=== PATIENT | female | born 1955 | race Caucasian/White ===

== ENCOUNTER → 2017-08-15 | Outpatient (CLI) | payer MEDICARE | LOC: LAB.R 15:00 | PROVIDERS: ATTEND Surgery | DX: Z01.812 Encounter for preprocedural laboratory examination (principal); R10.13 Epigastric pain | CPT/HCPCS: 87640 ==

== ENCOUNTER 2017-08-25 05:59 | Day surgery (SDC) | payer MEDICARE, OTHER ==
[2017-08-25] MEDS ORDERED: LACTATED RINGERS 1,000 ML IV ONE (06:33)
[2017-08-25] MEDS ORDERED: BENZOCAINE/TETRACAINE/BUTAMBEN SPRAY 56 GM TOP ONE ×2 (07:18→07:30)
[2017-08-25] MEDS ORDERED: ETOMIDATE 40 MG/20 ML VIAL IVP ONE (07:30)
[2017-08-25] MEDS ORDERED: LIDOCAINE-MPF 2% 5 ML VIAL IM ONE (07:30)
[2017-08-25] MEDS ORDERED: ONDANSETRON 4 MG/2 ML VIAL IVP ONE (07:30)
[2017-08-25 08:04] VITALS: BP 93/54
== END 2017-08-25 06:00 | disposition home or self-care (01) ==
LOC: SDS 05:59
PROVIDERS: ATTEND Surgery
PROC: 0DB78ZX Excision of Stomach, Pylorus, Via Natural or Artificial Opening Endoscopic, Diagnostic (ICD-10-PCS; principal; 2017-08-25 07:30)
DX: R10.13 Epigastric pain (principal); K44.9 Diaphragmatic hernia without obstruction or gangrene; K21.9 Gastro-esophageal reflux disease without esophagitis; G47.33 Obstructive sleep apnea (adult) (pediatric); Z79.82 Long term (current) use of aspirin; Z87.891 Personal history of nicotine dependence
CPT/HCPCS: 43239; A9270; J7120

== ENCOUNTER 2017-10-25 13:22 | Outpatient (CLI) | payer MEDICARE, OTHER | END 2017-10-25 13:23 | disposition home or self-care (01) | LOC: SC 13:22 | PROVIDERS: ATTEND Internal Medicine Pulmonary Disease | DX: G47.33 Obstructive sleep apnea (adult) (pediatric) (principal) | CPT/HCPCS: 99203; G0463; 99212 ==

== ENCOUNTER 2018-01-13 10:28 | Outpatient (CLI) | payer MEDICARE, OTHER ==
--- NOTE | 2018-01-20 14:23 | Mammography Report ---
Procedure Date: 01/13/2018 Accession Number: [id number] / [id number] Procedure: HONG - Screening Mammo Dig Bilat CPT Code: FULL RESULT: EXAM: Screening Mammo Dig Bilat DATE: 01/13/2018 10:45 AM CLINICAL HISTORY: 62-year-old with family history of breast cancer for screening TECHNIQUE: Bilateral CC and MLO views were obtained. COMPARISON: Films from [facility] dated 04/08/2014, 02/07/2013, 01/06/2012, 12/24/2010, 12/23/2009. Reports are available for subsequent mammograms from 2014, 2015, and 2016, but images were not provided. FINDINGS: The breasts demonstrate diffuse fatty replacement bilaterally. No suspicious masses, clustered microcalcifications, or regions of architectural distortion are identified. IMPRESSION: Negative examination RECOMMENDATION: Routine annual screening unless otherwise clinically indicated. BIRADS CATEGORY 1: Negative STANDARD QUALIFYING STATEMENTS: 1. This examination was reviewed with the aid of Computer-Aided Detection (CAD). 2. A negative or benign imaging report should not delay biopsy if clinically suspicious findings are present. Consider surgical consultation if warrented. More than 5% of cancers are not identified by imaging. 3. Dense breasts may obscure an underlying neoplasm.
== END 2018-01-13 10:29 | disposition home or self-care (01) ==
LOC: DI 10:28
PROVIDERS: ATTEND Internal Medicine
DX: Z12.31 Encounter for screening mammogram for malignant neoplasm of breast (principal); Z80.3 Family history of malignant neoplasm of breast
CPT/HCPCS: 77067

== ENCOUNTER 2018-02-01 11:08 | Outpatient (CLI) | payer SELFPAY | END 2018-02-01 11:09 | disposition home or self-care (01) | LOC: LAB 11:08 | DX: Z01.89 Encounter for other specified special examinations (principal) | CPT/HCPCS: 36415 ==

== ENCOUNTER 2018-04-25 12:42 | Emergency (ER) | payer MEDICARE, OTHER ==
[2018-04-25 13:12] LABS: BASOPHILS # (AUTO) 0.1 10^3/uL (0.0-0.1); BASOPHILS % (AUTO) 1.1 %; EOSINOPHILS # (AUTO) 0.1 10^3/uL (0.0-0.7); EOSINOPHILS % (AUTO) 1.2 %; HGB - HEMOGLOBIN 12.9 g/dL (12.0-16.0); LYMPHOCYTES # (AUTO) 3.1 10^3/uL (1.5-3.5); MEAN CORPUSCULAR HEMOGLOBIN 26.8 pg (27.0-31.0); MEAN CORPUSCULAR HGB CONC 32.7 g/dL (32.0-36.0); MEAN PLATELET VOLUME 7.8 fL (7.9-10.8); MONOCYTES # (AUTO) 0.7 10^3/uL (0.0-1.0); MONOCYTES % (AUTO) 5.9 %; NEUTROPHILS # (AUTO) 7.8 10^3/uL (1.5-6.6); NEUTROPHILS % (AUTO) 65.8 %; PLT - PLATELET COUNT 324 10^3/uL (130-450); RED CELL DISTRIBUTION WIDTH 15.3 % (12.0-15.0); WHITE BLOOD COUNT 11.8 x10^3/uL (4.8-10.8)
[2018-04-25 13:28] LABS: ALBUMIN/GLOBULIN RATIO 1.2 (1.0-2.2); BILIRUBIN,TOTAL 0.6 mg/dL (0.2-1.0); CALCIUM 8.9 mg/dL (8.5-10.3); CREATININE 0.8 mg/dL (0.4-1.0); TOTAL PROTEIN 7.4 g/dL (6.7-8.2)
[2018-04-25 13:35] LABS: BILIRUBIN,URINE NEGATIVE (NEGATIVE); GLUCOSE, URINE (UA) NEGATIVE (NEGATIVE); KETONES,URINE (UA) NEGATIVE (NEGATIVE); LEUKOCYTE ESTERASE, URINE NEGATIVE (NEGATIVE); NITRITE,URINE NEGATIVE (NEGATIVE); OCCULT BLOOD,URINE NEGATIVE (NEGATIVE); PROTEIN,URINE NEGATIVE (NEGATIVE); UROBILINOGEN,URINE 0.2 (NORMAL) E.U./dL (NORMAL)
[2018-04-25 13:42] LABS: CLARITY,URINE CLEAR (CLEAR); HCG UR QUAL NEGATIVE
--- NOTE | 2018-04-25 16:03 | ED Physician Documentation ---
PD HPI ABD PAIN - Stated complaint Stated Complaint: SIDE PX - Chief complaint Chief Complaint: Abd Pain - History obtained from History obtained from: Patient - History of Present Illness Timing - onset: How many days ago (10) Timing - duration: Days (noted to have RLQ tenderness on plapation 10 days ago. Has had some pain intermittently with movement. No change in it with eating. Some soft stools the past week. No blood in stool. No dysuria. Saw PCP today and grout machine tender to palpation RLQ so referred to ER.) Timing - details: Gradual onset, Still present, Intermittant Quality: Cramping, Aching, Pain Location: RLQ Radiation: No: Right flank Improved by: Laying still. No: Eating Worsened by: Moving, Palpation. No: Eating, Breathing Associated symptoms: No: Fever, Nausea, Vomiting, Diarrhea (but softer stools this week), Constipation, Dysuria, Weight loss Similar symptoms before: Has not had sx before Recently seen: Clinic Review of Systems Constitutional: denies: Fever, Chills, Myalgias Nose: denies: Rhinorrhea / runny nose, Congestion Throat: denies: Sore throat Cardiac: denies: Chest pain / pressure Respiratory: denies: Cough GI: reports: Abdominal Pain, Nausea. 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, Endometrial ablation, Dilation and currettage - Present Medications Home Medications: Ambulatory Orders Medication Instructions Recorded Confirmed Calcium Carbonate [Calcium] 600 mg PO DAILY 08/15/17 08/15/17 Escitalopram Oxalate [Lexapro] 20 mg PO DAILY 08/15/17 08/15/17 Levothyroxine Sodium [Synthroid] 175 mcg PO DAILY 08/15/17 08/15/17 Levothyroxine Sodium [Synthroid] 200 mcg PO DAILY 08/15/17 08/15/17 Loratadine [Allergy Relief] 10 mg PO DAILY 08/15/17 08/15/17 Omeprazole [PriLOSEC] 20 mg PO DAILY 08/15/17 08/15/17 Parathyroid Hormone [Natpara] 75 mcg SQ DAILY 08/15/17 08/15/17 Zolpidem Tartrate [Ambien] 10 mg PO QPM 08/15/17 08/15/17 Cholecalciferol (Vitamin D3) 04/25/18 [Vitamin D3] - Allergies Allergies/Adverse Reactions: Allergies Allergy/AdvReac Type Severity Reaction Status Date / Time gluten Allergy Cramps Verified 08/15/17 14:19 latex Allergy Itching Verified 08/15/17 14:19 - Social History Does the pt smoke?: No Smoking Status: Never smoker Does the pt drink ETOH?: Yes Does the pt have substance abuse?: No - Immunizations Immunizations are current?: Yes PD ED PE NORMAL - Vitals Vital signs reviewed: Yes - General General: Alert and oriented X 3, No acute distress, Well developed/nourished - HEENT HEENT: Pharynx benign - Neck Neck: Supple, no meningeal sign, No adenopathy - Cardiac Cardiac: RRR, No murmur - Respiratory Respiratory: Clear bilaterally - Abdomen Abdomen: Normal bowel sounds, Soft, Non distended, No organomegaly, Other (very obese. No obvious redness nor soft tissue mass in pannus. Tender RLQ without guarding nor percussion tenderness. ) - Female Female : Deferred - Rectal Rectal: Deferred - Back Back: No CVA TTP - Derm Derm: Normal color, Warm and dry, No rash - Extremities Extremities: No deformity, No tenderness to palpate Results - Vitals Vitals: Vital Signs - 24 hr 04/25/18 12:45 Temperature 36.9 C Heart Rate 82 Respiratory 16 Rate Blood Pressure 130/86 H O2 Saturation 95 Oxygen O2 Source Room air - Labs Labs: Laboratory Tests 04/25/18 04/25/18 04/25/18 13:08 13:08 13:30 WBC 11.8 H RBC 4.80 Hgb 12.9 Hct 39.3 MCV 82.0 MCH 26.8 L MCHC 32.7 RDW 15.3 H Plt Count 324 MPV 7.8 L Neut # (Auto) 7.8 H Lymph # (Auto) 3.1 Garza # (Auto) 0.7 Eos # (Auto) 0.1 Baso # (Auto) 0.1 Absolute Nucleated RBC 0.00 Nucleated RBC % 0.0 Sodium 140 Potassium 4.1 Chloride 102 Carbon Dioxide 26 Anion Gap 12.0 BUN 18 Creatinine 0.8 Estimated GFR (MDRD) 73 L Glucose 118 H Calcium 8.9 Total Bilirubin 0.6 AST 21 ALT 17 Alkaline Phosphatase 60 Total Protein 7.4 Albumin 4.0 Globulin 3.4 Albumin/Globulin Ratio 1.2 Lipase 33 Urine Color YELLOW Urine Clarity CLEAR Urine pH 7.0 Ur Specific [place] <=1.005 Urine Protein NEGATIVE Urine Glucose (UA) NEGATIVE Urine Ketones NEGATIVE Urine Occult Blood NEGATIVE Urine Nitrite NEGATIVE Urine Bilirubin NEGATIVE Urine Urobilinogen 0.2 (NORMAL) Ur Leukocyte Esterase NEGATIVE Ur Microscopic Review NOT INDICATED Urine Culture Comments NOT INDICATED Urine HCG, Qual NEGATIVE - Rads (name of study) abd CT Radiology: Prelim report reviewed (no clear cause for the pain) PD MEDICAL DECISION MAKING - ED course Complexity details: reviewed results (no clear cause of the pain found on testing. Could be myofascial. Not clear. ), considered differential (concern for appy, colitis, stone, other cause), d/w patient - Sepsis Event Vital Signs: Vital Signs - 24 hr 04/25/18 12:45 Temperature 36.9 C Heart Rate 82 Respiratory 16 Rate Blood Pressure 130/86 H O2 Saturation 95 Oxygen O2 Source Room air Departure - Departure Disposition: 01 Home, Self Care Clinical Impression: Abdominal pain Qualifiers: Abdominal location: right lower quadrant Qualified Code(s): R10.31 - Right l ower quadrant pain Condition: Stable Record reviewed to determine appropriate education?: Yes Instructions: ED Abdominal Pain Unkn Cause Follow-Up: Vivien Jackson MD [Primary Care Provider] - Comments: There is no obvious cause of the pain at this time. Your appendix is normal. Is no obvious signs of ovarian cysts or stones in the ureter. I presume there may be some inflammation intestinally or could even be musculoskeletal. I would suggest some naproxen or ibuprofen 2-3 times daily for the next 7 days with food and see if overall your improved. Follow-up with your primary care later this week, call for an appointment. Discharge Date/Time: 04/25/18 18:14
[2018-04-25] MEDS ORDERED: KETOROLAC 15 MG/ML VIAL IVP STA (16:33)
[2018-04-25] MEDS ORDERED: IOPAMIDOL-300 100 ML VIAL ONE (16:39)
[2018-04-25] MEDS ORDERED: IOPAMIDOL-300 100 ML VIAL IVP ONE (17:14)
--- NOTE | 2018-04-25 17:36 | CT Report ---
Reason: RLQ abd pain for 10 days Procedure Date: 04/25/2018 Accession Number: [id number] / [id number] Procedure: CT - Abdomen/Pelvis W/ CPT Code: FULL RESULT: EXAM: CT ABDOMEN AND PELVIS EXAM DATE: 04/25/2018 05:12 PM. CLINICAL HISTORY: RLQ pain for 10 days. COMPARISONS: None. TECHNIQUE: Routine helical CT imaging was performed through the abdomen and pelvis. IV contrast: 100 cc of Isovue-300. Enteric contrast: No. Reconstructions: Coronal and sagittal. In accordance with CT protocol optimization, one or more of the following dose reduction techniques were utilized for this exam: automated exposure control, adjustment of mA and/or KV based on patient size, or use of iterative reconstructive technique. FINDINGS: Lung Bases: Unremarkable. Liver: Normal. No masses. Gallbladder/Bile Ducts: Unremarkable. Spleen: Normal. Pancreas: Normal. Adrenal Glands: Normal. Kidneys: Lower pole 2 cm exophytic abnormality with CT numbers above 20 on the left. 5 mm nonobstructing intrarenal stone on the left. Otherwise unremarkable kidneys and ureters. Peritoneal Cavity/Bowel: Normal. No free fluid, free air or adenopathy. No masses or acute inflammatory process. The appendix is well visualized and normal. Pelvic Organs: IUD in place, otherwise unremarkable reproductive organs and bladder. Vasculature: No aneurysms or other significant abnormality. Bones: Degenerative disk disease, L3-S1. Other: None. IMPRESSION: 1. Negative for source of right lower quadrant pain, with normal appendix identified. 2. 2 cm exophytic left renal abnormality with CT numbers suggesting either a complex cyst or mass. Consider MRI evaluation. 3. Nonobstructing intrarenal stone on the left. 4. IUD in place. RADIA
[2018-04-25 18:14] VITALS: BP 145/82
== END 2018-04-25 18:14 | disposition home or self-care (01) ==
LOC: ED 12:42
DX: R10.31 Right lower quadrant pain (principal); E66.9 Obesity, unspecified; Z68.44 Body mass index [BMI] 60.0-69.9, adult
CPT/HCPCS: 36415; 74177; 80053; 81003; 81025; 83690; 85025; 96374; 99283; Q9967; 81001; 87086

== ENCOUNTER 2018-10-30 15:17 | Outpatient (CLI) | payer MEDICARE, OTHER | END 2018-10-30 15:18 | disposition home or self-care (01) | LOC: SC 15:17 | PROVIDERS: ATTEND Internal Medicine Pulmonary Disease | DX: G47.33 Obstructive sleep apnea (adult) (pediatric) (principal) | CPT/HCPCS: 99213; G0463; 99212 ==

== ENCOUNTER 2019-01-19 23:59 | Outpatient (CLI) | payer MEDICARE, OTHER ==
[2019-01-19 12:29] LABS: BASOPHILS # (AUTO) 0.1 10^3/uL (0.0-0.1); BASOPHILS % (AUTO) 0.6 %; EOSINOPHILS # (AUTO) 0.1 10^3/uL (0.0-0.7); EOSINOPHILS % (AUTO) 1.3 %; HGB - HEMOGLOBIN 12.8 g/dL (12.0-16.0); LYMPHOCYTES # (AUTO) 2.5 10^3/uL (1.5-3.5); LYMPHOCYTES % (AUTO) 24.6 %; MEAN CORPUSCULAR HEMOGLOBIN 26.1 pg (27.0-31.0); MEAN CORPUSCULAR HGB CONC 31.1 g/dL (32.0-36.0); MEAN CORPUSCULAR VOLUME 84.1 fL (81.0-99.0); MONOCYTES # (AUTO) 0.6 10^3/uL (0.0-1.0); MONOCYTES % (AUTO) 5.8 %; NEUTROPHILS # (AUTO) 6.9 10^3/uL (1.5-6.6); NEUTROPHILS % (AUTO) 67.1 %; PLT - PLATELET COUNT 364 10^3/uL (130-450); RED CELL DISTRIBUTION WIDTH 15.1 % (12.0-15.0); WHITE BLOOD COUNT 10.3 x10^3/uL (4.8-10.8)
[2019-01-19 13:09] LABS: ALBUMIN 3.9 g/dL (3.2-5.5); ALBUMIN/GLOBULIN RATIO 1.1 (1.0-2.2); ALKALINE PHOSPHATASE 75 IU/L (42-121); ALT ALANINE AMINOTRANSFERASE 18 IU/L (10-60); AST ASPARTATE AMINOTRANSFERASE 16 IU/L (10-42); BILIRUBIN,TOTAL 0.4 mg/dL (0.2-1.0); BUN - BLOOD UREA NITROGEN 20 mg/dL (6-20); CALCIUM 8.5 mg/dL (8.5-10.3); CARBON DIOXIDE - CO2 24 mmol/L (21-32); CHLORIDE 102 mmol/L (101-111); CHOL/HDL RATIO 5.8 (<4.4); CHOLESTEROL 210 mg/dL; CREATININE 0.9 mg/dL (0.4-1.0); GFR - MDRD 64 (>89); GLUCOSE 160 mg/dL (70-100); HDL CHOLESTEROL 36 mg/dL; LDL CHOLESTEROL,CALCULATED 152 mg/dL; LDL/HDL RATIO 4.2 (<4.4); SODIUM 138 mmol/L (135-145); TOTAL PROTEIN 7.6 g/dL (6.7-8.2); VLDL CHOLESTEROL 22 mg/dL
[2019-01-19 13:19] LABS: HB2 TOTAL 13.6 g/dL; HEMOGLOBIN A1C 0.65 g/dL; HEMOGLOBIN A1C % 6.5 % (4.6-6.2)
== END 2019-01-20 | disposition home or self-care (01) ==
LOC: LAB.N 23:59
PROVIDERS: ATTEND Internal Medicine
DX: Z00.00 Encounter for general adult medical examination without abnormal findings (principal); N20.0 Calculus of kidney; R73.01 Impaired fasting glucose; E78.5 Hyperlipidemia, unspecified; E20.9 Hypoparathyroidism, unspecified
CPT/HCPCS: 36415; 80053; 80061; 83036; 83721; 85025

== ENCOUNTER 2019-01-24 10:16 | Outpatient (CLI) | payer MEDICARE, OTHER ==
--- NOTE | 2019-01-24 11:24 | Mammography Report ---
Reason: SCREENING MAMMO Procedure Date: 01/24/2019 Accession Number: [id number] / [id number] Procedure: MGN - Screening Mammo Dig Bilat CPT Code: FULL RESULT: EXAM: Screening Mammo Dig Bilat DATE: 01/24/2019 10:56 AM CLINICAL HISTORY: Routine screening TECHNIQUE: (B) - Bilateral CC and MLO views were obtained. COMPARISON: 01/13/2018 PARENCHYMAL PATTERN: (A) - The breasts demonstrate scattered fibroglandular densities bilaterally. FINDINGS: No significant interval change. There are no suspicious masses, calcifications, or areas of distortion. IMPRESSION: Negative examination. BI-RADS category 1. RECOMMENDATION: (ANNUAL) - Recommend routine annual screening mammography. BI-RADS CATEGORY: (1) - Negative. STANDARD QUALIFYING STATEMENTS: 1. This examination was not reviewed with the aid of Computer-Aided Detection (CAD). 2. A negative or benign imaging report should not preclude biopsy if clinically suspicious findings are present. 3. Dense breasts may obscure an underlying neoplasm. 4. This examination was reviewed without the aid of 3D breast imaging (tomosynthesis).
== END 2019-01-24 10:17 | disposition home or self-care (01) ==
LOC: DI.N 10:16
PROVIDERS: ATTEND Internal Medicine
DX: Z12.31 Encounter for screening mammogram for malignant neoplasm of breast (principal)
CPT/HCPCS: 77067

== ENCOUNTER 2019-05-31 13:52 | Outpatient (CLI) | payer MEDICARE, OTHER | END 2019-05-31 13:53 | disposition home or self-care (01) | LOC: RT 13:52 | PROVIDERS: ATTEND Internal Medicine Cardiovascular Disease | DX: Z13.6 Encounter for screening for cardiovascular disorders (principal); R60.0 Localized edema; R06.02 Shortness of breath; R06.00 Dyspnea, unspecified | CPT/HCPCS: 36415; 83880; 93005 ==

== ENCOUNTER 2019-05-31 14:07 | Outpatient (CLI) | payer MEDICARE, OTHER | END 2019-05-31 14:08 | disposition home or self-care (01) | LOC: LAB 14:07 | PROVIDERS: ATTEND Internal Medicine Cardiovascular Disease | DX: R06.00 Dyspnea, unspecified (principal); R06.02 Shortness of breath | CPT/HCPCS: 36415; 83880 ==

== ENCOUNTER 2019-08-02 08:00 | Outpatient (CLI) | payer MEDICARE, OTHER | END 2019-08-02 23:59 | disposition home or self-care (01) | LOC: LAB.N 08:00 | PROVIDERS: ATTEND Internal Medicine Endocrinology, Diabetes & Metabolism | DX: E89.2 Postprocedural hypoparathyroidism (principal) | CPT/HCPCS: 36415; 82310 ==

== ENCOUNTER 2019-10-09 14:44 | Outpatient (CLI) | payer MEDICARE, OTHER | END 2019-10-09 14:45 | disposition home or self-care (01) | LOC: LAB.N 14:44 | PROVIDERS: ATTEND Internal Medicine Endocrinology, Diabetes & Metabolism | DX: E89.2 Postprocedural hypoparathyroidism (principal) | CPT/HCPCS: 36415; 82306; 82310 ==

== ENCOUNTER 2019-11-15 16:50 | Outpatient (CLI) | payer MEDICARE, OTHER ==
--- NOTE | 2019-11-15 13:30 | SLEEP CARE CONSULTATION ---
Information from patient questionnaire entered by Adelia Moore. I have reviewed and concur with the information entered by Adelia Moore. This document represents the service I personally performed and the decisions made by me, Grisel Hahn, RN, MSN, [employer]. History of Present Illness Service Date and Time: 11/15/2019 1300 Previous diagnosis: Moderate, Obstructive Sleep Apnea-Hypopnea Syndrome AHI: 20.3 Reason for follow up: annual Equipment type: CPAP Equipment obtained from: [employer] (getting supplies as needed) Mask style: Full face Mask brand: Resmed (Air Touch - works well for her sensitive skin) Backup mask available: Yes Last cushion change: about a month ago - changes monthly CPAP Compliance Data - Data Reviewed with Patient Average duration of nightly device use: 8h 14m Compliance rate %: 99.4 Current pressure setting (cmH2O): 11 Humidity settin Heated hose settin Average residual AHI: 0.5 Subjective Patient concerns: reports: nasal congestion (with allergies - ). denies: aerophagia, mask discomfort, air blowing in eyes, mask leak noise, condensation in mask/hose, dry mouth, nose, throat, epistaxis, other Observed to snore while using device: Yes (only with allergies ) Current pressure setting perceived as: comfortable On therapy, patient: reports: sleeping better, awakening more refreshed, being more awake and alert during the day, more rested overall, other. denies: drowsiness while driving Initial [place] Sleepiness Scale score: 9 Allergies and Home Medications Home medication list reviewed: No (stopped natpara -started calictral - no other changes) Review of Systems Review of systems same as previous: Yes Physical Exam Height: 5 ft 5 in Weight: 404 lb (home weight) Body Mass Index: 67.2 BMI Classification: Morbidly Obese Impression and Plan 1. Obstructive Sleep Apnea-Hypopnea Syndrome, moderate, with good treatment compliance and good apnea control. On CPAP therapy, the patient has better sleep quality and is more rested overall. Patient is pleased with benefit of treatment and getting supplies as needed from [employer]. Nasal congestion from her allergies can be reduced with increasing the CPAP humidity as shown on sample device in addition to her allergy medication. Saline nasal spray sample was also given to use prior to CPAP to clear nasal secretions and wash off any nasal allergens to facilitate nasal breathing. In addition, a steamy shower before bed will often assist nasal drainage. Printed instructions given on how to change humidity and heated hose settings with rationale explaining why to change. I also discussed how weight affects apnea severity and CPAP pressure requirements and symptoms to report if significant weight change so pressure can be adjusted. She is aware she needs to lose weight. She states she is working with PT to reduce weight from lymphoedema. Patient's apnea severity and rationale for treatment to reduce apnea, improve sleep quality and reduce cardiovascular and cerebrovascular events was reviewed. * Continue CPAP pressure at 11 cmH2O * Implement methods to reduce nasal congestion * Notify me if snoring with mask or feeling that the pressure is too much or too little * Attempt to lose weight * Call this office if any problems using CPAP * Return for follow up in 1 year , or sooner if concerns arise Visit Type: Telehealth Video (to minimize the risk of COVID 19 exposure, the patient has requested and consented to this visit and to bill insurance.) Video Type: ClickScanShare Patient Location: Home Location of Provider: Office Patient agrees and consents to this telehealth visit type: Yes Time Spent with Patient (minutes): 20 Provider Statement: I spent 100% of the Telehealth Video Call with the patient with greater than 50% spent counseling the patient and coordination of care.
== END 2019-11-15 16:51 | disposition home or self-care (01) ==
LOC: SC 16:50
PROVIDERS: ATTEND Nurse Practitioner Family
DX: G47.33 Obstructive sleep apnea (adult) (pediatric) (principal); E66.01 Morbid (severe) obesity due to excess calories; Z68.44 Body mass index [BMI] 60.0-69.9, adult

== ENCOUNTER 2019-12-21 14:20 | Outpatient (CLI) | payer OTHER, MEDICARE ==
[2019-12-21 15:18] LABS: BILIRUBIN,URINE NEGATIVE (NEGATIVE); GLUCOSE, URINE (UA) NEGATIVE (NEGATIVE); KETONES,URINE (UA) NEGATIVE (NEGATIVE); LEUKOCYTE ESTERASE, URINE NEGATIVE (NEGATIVE); NITRITE,URINE NEGATIVE (NEGATIVE); OCCULT BLOOD,URINE NEGATIVE (NEGATIVE); PH,URINE 5.5 PH (5.0-7.5); PROTEIN,URINE NEGATIVE (NEGATIVE); UROBILINOGEN,URINE 0.2 (NORMAL) E.U./dL (NORMAL)
[2019-12-21 15:20] LABS: CLARITY,URINE CLEAR (CLEAR)
[2019-12-21 15:21] LABS: CALCIUM 8.8 mg/dL (8.5-10.3); CREATININE 0.9 mg/dL (0.4-1.0)
== END 2019-12-21 14:21 | disposition home or self-care (01) ==
LOC: LAB 14:20
PROVIDERS: ATTEND Internal Medicine Endocrinology, Diabetes & Metabolism
DX: N20.0 Calculus of kidney (principal); C73 Malignant neoplasm of thyroid gland
CPT/HCPCS: 36415; 80048; 81001; 81003; 81599; 84432; 84443; 86800; 87086

== ENCOUNTER 2020-04-03 16:01 | Outpatient (CLI) | payer MEDICARE, OTHER ==
--- NOTE | 2020-04-03 16:18 | SLEEP CARE CONSULTATION ---
Information from patient questionnaire entered by Melanie Mahmood. I have reviewed and concur with the information entered by Melanie Mahmood. This document represents the service I personally performed and the decisions made by me, Luz Martinez ARNP. History of Present Illness Service Date and Time: 04/03/2020 1500 Previous diagnosis: Moderate, Obstructive Sleep Apnea-Hypopnea Syndrome AHI: 20.3 (in 2010) Reason for follow up: other (5 month with pressure issues) Equipment type: CPAP Equipment obtained from: [employer] (getting supplies as needed) Mask style: Full face Mask brand: Resmed Backup mask available: No (keep a mask once she changes her mask next) Last cushion change: 3 months Prior sleep studies: Yes Year and Where: 2007 - unknown, 2010 - HPI additional information: ANNA FISCHER was diagnosed to have moderate, AHI 20.3, obstructive sleep apnea- hypopnea syndrome and returned today for CPAP therapy four month follow-up for a pressure change. Patient states she has been getting massage therapy for her lymphedema (whole body) and feels like she is breathing better overall. She states she had her pressure adjusted at her last appointment down because of aerophagia. She states she is having difficulty with waking up with a jerk and feeling like she needs air and the pressure feels too low. Her husbands tells her she is snoring more. CPAP Compliance Data - Data Reviewed with Patient Average duration of nightly device use: 8.25 Compliance rate %: 100 (90 days) Current pressure setting (cmH2O): 9 Humidity settin Heated hose settin Average residual AHI: 0.6 Subjective Patient concerns: reports: mask leak noise. denies: aerophagia, mask discomfort, air blowing in eyes, condensation in mask/hose, nasal congestion, dry mouth, nose, throat, epistaxis, other Observed to snore while using device: Yes Current pressure setting perceived as: too low On therapy, patient: reports: sleeping better, awakening more refreshed, being more awake and alert during the day, more rested overall. denies: drowsiness while driving Initial [place] Sleepiness Scale score: 9 (in 2018) Current [place] Sleepiness Scale score: 5 Allergies and Home Medications Drug allergies reviewed: Yes (epinephrine, glutten, rubber, latex) Home medication list reviewed: Yes (no changes) Review of Systems Review of systems same as previous: Yes (no changes) Physical Exam Heart Rate: 83 O2 Saturation: 97 Height: 5 ft 5 in Weight: 404 lb Body Mass Index: 67.2 BMI Classification: Morbidly Obese Impression and Plan 1. Obstructive Sleep Apnea-Hypopnea Syndrome, moderate, with good treatment compliance and good apnea control. On CPAP therapy, the patient has better sleep quality and is more rested overall. Her pressure has been at 9 cm H2O. I will increase her pressure to 10 cm H2O since 11 cm H2O was too high at her last visit. I will have her follow up in a 1-2 months to evaluate if the pressure is more comfortable and her snoring is better controlled. Patient's apnea severity and rationale for treatment to reduce apnea, improve sleep quality and reduce cardiovascular and cerebrovascular events was reviewed. * Change CPAP pressure to 10 cmH2O * Notify me if snoring with mask or feeling that the pressure is too much or too little * Attempt to lose weight * Call this office if any problems using CPAP * Return for follow up in 1-2 months, or sooner if concerns arise Visit Type: In Office Time Spent with Patient (minutes): 15 Provider Statement: I spent 100% of the Face to Face Visit with the patient with greater than 50% spent counseling the patient and coordination of care.
== END 2020-04-03 16:02 | disposition home or self-care (01) ==
LOC: SC 16:01
PROVIDERS: ATTEND Nurse Practitioner Family
DX: G47.33 Obstructive sleep apnea (adult) (pediatric) (principal); E66.01 Morbid (severe) obesity due to excess calories; Z68.44 Body mass index [BMI] 60.0-69.9, adult
CPT/HCPCS: 99213; G0463; 99212

== ENCOUNTER 2020-10-10 11:27 | Outpatient (CLI) | payer MEDICARE, OTHER ==
--- NOTE | 2020-10-13 12:40 | Mammography Report ---
BILATERAL DIGITAL SCREENING MAMMOGRAM 3D/2D: 10/10/2020 CLINICAL: Routine screening. Comparison is made to exams dated: 01/24/2019 mammogram, 01/13/2018 mammogram - [facility], and 04/08/2014 mammogram - [facility]. There are scattered fibroglandular elements in both breasts. No significant masses, calcifications, or other findings are seen in either breast. There has been no significant interval change. IMPRESSION: NEGATIVE There is no mammographic evidence of malignancy. A 1 year screening mammogram is recommended. This exam was interpreted at Station ID: [id number]. NOTE: For mammograms, a report in lay terms will be sent to the patient. Approximately 15% of breast malignancies will not be visualized mammographically. In the management of a palpable breast mass, a negative mammogram must not discourage biopsy of a clinically suspicious lesion. Electronically Signed By: Bg Martin M.D. ar/penrad:10/10/2020 12:39:09 ACR BI-RADS Category 1: Negative 3341F PARENCHYMAL PATTERN: (A) - The breast(s) demonstrate(s) scattered fibroglandular densities. BI-RADS CATEGORY: (1) - 1 RECOMMENDATION: (ANNUAL) - Recommend routine annual screening mammography. [id number] 1 year screening LATERALITY: (B)
== END 2020-10-10 11:28 | disposition home or self-care (01) ==
LOC: DI 11:27
PROVIDERS: ATTEND Advanced Practice Midwife
DX: Z12.31 Encounter for screening mammogram for malignant neoplasm of breast (principal)

== ENCOUNTER 2020-11-05 10:52 | Outpatient (CLI) | payer MEDICARE, OTHER ==
--- NOTE | 2020-11-05 11:39 | SLEEP CARE CONSULTATION ---
Information from patient questionnaire entered by Melanie Mahmood. I have reviewed and concur with the information entered by Melanie Mahmood. This document represents the service I personally performed and the decisions made by , Luz Martinez ARNP. History of Present Illness Service Date and Time: 11/05/2020 1052 Previous diagnosis: Moderate, Obstructive Sleep Apnea-Hypopnea Syndrome AHI: 20.3 (in 2010) Reason for follow up: six month Equipment type: CPAP Equipment obtained from: [employer] (getting supplies as needed) Mask style: Full face (with foam on it) Backup mask available: Yes (old mask) Last cushion change: 3 weeks ago Prior sleep studies: Yes Year and Where: 2010 - [facility] [place] in [place]; 2007 - unknown Type of Sleep Study: Polysomnography HPI additional information: ANNA FISCHER was diagnosed to have moderate, AHI 2o.3, obstructive sleep apnea- hypopnea syndrome and returned today for CPAP therapy six month follow-up. CPAP Compliance Data - Data Reviewed with Patient Average duration of nightly device use: 8 hr 12 min Compliance rate %: 99.4 (180 days) Current pressure setting (cmH2O): 10 Humidity settin Heated hose settin Average residual AHI: 0.6 Subjective Patient concerns: denies: aerophagia, mask discomfort, air blowing in eyes, mask leak noise, condensation in mask/hose, nasal congestion, dry mouth, nose, throat, epistaxis, other Observed to snore while using device: No (occasionally if on back, she is a side sleeper) Current pressure setting perceived as: comfortable On therapy, patient: reports: sleeping better, awakening more refreshed, being more awake and alert during the day, more rested overall. denies: drowsiness while driving Initial [place] Sleepiness Scale score: 9 (in 2018) Current [place] Sleepiness Scale score: 3 Allergies and Home Medications Home medication list reviewed: Yes (stopped Ambien; taking 7 mg Melatonin at night) Review of Systems Review of systems same as previous: Yes (no changes) Physical Exam Heart Rate: 77 O2 Saturation: 94 Height: 5 ft 5 in Weight: 393 lb Weight change since last visit: 11 loss Body Mass Index: 65.4 BMI Classification: Morbidly Obese Impression and Plan 1. Obstructive Sleep Apnea-Hypopnea Syndrome, moderate, with excellent treatment compliance and excellent apnea control. On CPAP therapy, the patient has better sleep quality and is more rested overall. She is having significant improvement of her apnea and is satisfied with her treatment. She has no issues or concerns. Patient's apnea severity and rationale for treatment to reduce apnea, improve sleep quality and reduce cardiovascular and cerebrovascular events was reviewed. 2. Morbid obesity, unspecified. Patient has lost weight. Currently patients BMI is 65.4.Obesity increases the risk of apnea, CPAP pressure requirements and overall health risks especially cardiovascular and diabetes. Thus patient is advised to continue to lose weight. The patient's CPAP pressure range should accommodate some weight loss. Symptoms to report for additional pressure adjustment discussed. * Continue auto CPAP pressure at 10 cmH2O * Notify me if snoring with mask or feeling that the pressure is too much or too little * Continue to lose weight * Call this office if any problems using CPAP * Return for follow up in 1 year, or sooner if concerns arise Counseling Topics: Spare mask, Weight loss health impact Visit Type: In Office Time Spent with Patient (minutes): 16 Provider Statement: I spent 100% of the Face to Face Visit with the patient with greater than 50% spent counseling the patient and coordination of care.
== END 2020-11-05 10:53 | disposition home or self-care (01) ==
LOC: SC 10:52
PROVIDERS: ATTEND Nurse Practitioner Family
DX: G47.33 Obstructive sleep apnea (adult) (pediatric) (principal); E66.01 Morbid (severe) obesity due to excess calories; Z68.44 Body mass index [BMI] 60.0-69.9, adult
CPT/HCPCS: 99212; G0463

== ENCOUNTER 2021-10-09 10:57 | Outpatient (CLI) | payer MEDICARE, OTHER ==
[2021-10-09 11:38] LABS: BASOPHILS # (AUTO) 0.1 10^3/uL (0.0-0.1); BASOPHILS % (AUTO) 0.6 %; EOSINOPHILS # (AUTO) 0.2 10^3/uL (0.0-0.7); EOSINOPHILS % (AUTO) 2.2 %; HCT - HEMATOCRIT 40.2 % (37.0-47.0); HGB - HEMOGLOBIN 12.9 g/dL (12.0-16.0); LYMPHOCYTES # (AUTO) 2.2 10^3/uL (1.5-3.5); LYMPHOCYTES % (AUTO) 24.1 %; MEAN CORPUSCULAR HEMOGLOBIN 26.1 pg (27.0-31.0); MEAN CORPUSCULAR HGB CONC 32.1 g/dL (32.0-36.0); MEAN CORPUSCULAR VOLUME 81.2 fL (81.0-99.0); MEAN PLATELET VOLUME 9.7 fL (7.9-10.8); MONOCYTES # (AUTO) 0.5 10^3/uL (0.0-1.0); MONOCYTES % (AUTO) 5.6 %; NEUTROPHILS # (AUTO) 6.2 10^3/uL (1.5-6.6); NEUTROPHILS % (AUTO) 67.2 %; PLT - PLATELET COUNT 345 10^3/uL (130-450); RED BLOOD COUNT 4.95 10^6/uL (4.20-5.40); WHITE BLOOD COUNT 9.3 x10^3/uL (4.8-10.8)
[2021-10-09 11:45] LABS: CALCIUM, IONIZED 1.11 mmol/L (1.15-1.33); CREATININE 0.9 mg/dL (0.4-1.0); PHOSPHORUS 3.2 mg/dL (2.5-4.6); POTASSIUM 3.8 mmol/L (3.5-5.0); VBG PH 7.42 (7.31-7.41)
[2021-10-09 11:59] LABS: THYROID STIMULATING HORMONE 0.65 uIU/mL (0.34-5.60)
[2021-10-09 12:01] LABS: FREE T4 (FREE THYROXINE) 1.19 ng/dL (0.58-1.64)
[2021-10-12 16:21] LABS: THYROGLOBULIN <0.1 ng/mL
== END 2021-10-09 10:58 | disposition home or self-care (01) ==
LOC: LAB 10:57
PROVIDERS: ATTEND Internal Medicine
DX: C73 Malignant neoplasm of thyroid gland (principal); E89.0 Postprocedural hypothyroidism; E89.2 Postprocedural hypoparathyroidism
CPT/HCPCS: 36415; 80069; 82306; 82330; 83970; 84432; 84439; 84443; 85025; 86800

== ENCOUNTER 2021-11-30 13:01 | Outpatient (CLI) | payer MEDICARE, OTHER | END 2021-11-30 13:02 | disposition home or self-care (01) | LOC: LAB 13:01 | PROVIDERS: ATTEND Internal Medicine | DX: E89.2 Postprocedural hypoparathyroidism (principal) | CPT/HCPCS: 81599; 82340; 82570 ==

== ENCOUNTER 2021-12-14 09:10 | Outpatient (CLI) | payer MEDICARE, OTHER ==
--- NOTE | 2021-12-14 11:39 | Ultrasound Report ---
PROCEDURE: Head or Neck Soft Tissue INDICATIONS: THYROID CA TECHNIQUE: Real-time scanning was performed of the thyroid gland, with image documentation. COMPARISON: None. FINDINGS: Right: Surgically absent. No residual thyroid tissue Left: Surgically absent, no residual thyroid tissue Isthmus: Surgically absent, no residual thyroid tissue Miscellaneous: No anterior cervical lymphadenopathy noted. IMPRESSION: Unremarkable thyroid ultrasound post thyroidectomy, with no residual thyroid noted and no enlarged ly mph nodes seen. Reviewed by: Crescencio Upton MD on 12/14/2021 11:37 AM PDT Approved by: Crescencio Upton MD on 12/14/2021 11:37 AM PDT Station ID: [id number]
== END 2021-12-14 09:11 | disposition home or self-care (01) ==
LOC: DI 09:10
PROVIDERS: ATTEND Internal Medicine
DX: E89.2 Postprocedural hypoparathyroidism (principal); E89.0 Postprocedural hypothyroidism; C73 Malignant neoplasm of thyroid gland

== ENCOUNTER 2021-12-22 13:51 | Outpatient (CLI) | payer MEDICARE, OTHER ==
[2021-12-22 14:16] LABS: CALCIUM, IONIZED 1.12 mmol/L (1.15-1.33); VBG PH 7.418 (7.31-7.41)
[2021-12-22 14:29] LABS: ALBUMIN 3.7 g/dL (3.2-5.5); CALCIUM 9.1 mg/dL (8.5-10.3); CREATININE 0.8 mg/dL (0.4-1.0); PHOSPHORUS 4.1 mg/dL (2.5-4.6); POTASSIUM 3.9 mmol/L (3.5-5.0)
[2021-12-22 14:45] LABS: THYROID STIMULATING HORMONE 0.62 uIU/mL (0.34-5.60)
[2021-12-22 14:51] LABS: PROLACTIN 9.09 ng/mL
== END 2021-12-22 13:52 | disposition home or self-care (01) ==
LOC: LAB 13:51
PROVIDERS: ATTEND Internal Medicine
DX: E89.2 Postprocedural hypoparathyroidism (principal); N64.52 Nipple discharge
CPT/HCPCS: 36415; 80069; 82306; 82330; 84146; 84443

== ENCOUNTER 2022-02-12 13:46 | Outpatient (CLI) | payer MEDICARE, OTHER | END 2022-02-12 13:47 | disposition home or self-care (01) | LOC: LAB 13:46 | PROVIDERS: ATTEND Ophthalmology | DX: G44.89 Other headache syndrome (principal) | CPT/HCPCS: 36415; 85651; 86140 ==

== ENCOUNTER 2022-04-14 09:22 | Outpatient (CLI) | payer MEDICARE, OTHER ==
[2022-04-14 10:24] LABS: ALBUMIN 3.7 g/dL (3.2-5.5); CALCIUM 8.9 mg/dL (8.5-10.3); CREATININE 0.9 mg/dL (0.4-1.0); PHOSPHORUS 3.5 mg/dL (2.5-4.6); POTASSIUM 3.7 mmol/L (3.5-5.0)
== END 2022-04-14 09:23 | disposition home or self-care (01) ==
LOC: LAB 09:22
PROVIDERS: ATTEND Internal Medicine
DX: C73 Malignant neoplasm of thyroid gland (principal); E89.0 Postprocedural hypothyroidism; E89.2 Postprocedural hypoparathyroidism; R82.994 Hypercalciuria; N20.0 Calculus of kidney
CPT/HCPCS: 36415; 80069; 81599; 82306; 84432; 84443; 86800

== ENCOUNTER 2022-04-16 11:38 | Outpatient (CLI) | payer MEDICARE, OTHER | END 2022-04-16 11:39 | disposition home or self-care (01) | LOC: LAB 11:38 | PROVIDERS: ATTEND Internal Medicine | DX: C73 Malignant neoplasm of thyroid gland (principal); E89.2 Postprocedural hypoparathyroidism; E89.0 Postprocedural hypothyroidism; N20.0 Calculus of kidney; R82.994 Hypercalciuria | CPT/HCPCS: 81599; 82340; 82530; 82570 ==

== ENCOUNTER 2022-04-22 10:31 | Outpatient (CLI) | payer MEDICARE, OTHER ==
[2022-04-22 11:21] LABS: CORTISOL 8.3 ug/dL
[2022-04-22 11:30] LABS: PROLACTIN 9.8 ng/mL
[2022-04-22 11:53] LABS: FOLLICLE STIMULATING HORMONE 18.7 mIU/mL
[2022-04-22 11:54] LABS: LUTEINIZING HORMONE 8.93 mIU/mL
== END 2022-04-22 10:32 | disposition home or self-care (01) ==
LOC: LAB 10:31
PROVIDERS: ATTEND Internal Medicine
DX: E23.7 Disorder of pituitary gland, unspecified (principal); H53.9 Unspecified visual disturbance; R51.9 Headache, unspecified
CPT/HCPCS: 36415; 82024; 82533; 82670; 83001; 83002; 84146; 84305

== ENCOUNTER 2022-06-14 10:10 | Outpatient (CLI) | payer MEDICARE, OTHER ==
[2022-06-14 10:47] LABS: CREATININE 0.9 mg/dL (0.4-1.0); POTASSIUM 4.1 mmol/L (3.5-5.0)
[2022-06-14 11:03] LABS: THYROID STIMULATING HORMONE 0.65 uIU/mL (0.34-5.60)
[2022-06-14 11:05] LABS: FREE T4 (FREE THYROXINE) 1.25 ng/dL (0.58-1.64)
[2022-06-14 12:28] LABS: ESTIMATED AVERAGE GLUCOSE 160 mg/dL (70-100); HEMOGLOBIN A1c% 7.2 % (4.27-6.07)
== END 2022-06-14 10:11 | disposition home or self-care (01) ==
LOC: LAB 10:10
PROVIDERS: ATTEND Internal Medicine
DX: E89.2 Postprocedural hypoparathyroidism (principal); C73 Malignant neoplasm of thyroid gland; N20.0 Calculus of kidney; R73.01 Impaired fasting glucose
CPT/HCPCS: 36415; 80048; 83036; 84439; 84443

== ENCOUNTER 2022-08-03 08:09 | Outpatient (CLI) | payer OTHER, MEDICARE ==
--- NOTE | 2022-08-03 14:51 | CT Report ---
PROCEDURE: ABDOMEN/PELVIS WO INDICATIONS: NEPHROLITHIASIS TECHNIQUE: Noncontrast 5 mm thick sections acquired from the diaphragms to the symphysis. 5 mm coronal and sagi ttal reformats were then performed. For radiation dose reduction, the following was used: automated exposure control, adjustment of mA and/or kV according to patient size. COMPARISON: CT abdomen and pelvis 04/25/2018. FINDINGS: Image quality: Good. ABDOMEN: Lung bases: Lung bases are clear. Heart size is normal. Solid organs: Liver and spleen are normal in size. Gallbladder is unremarkable. Pancreas is normal in contours. No adrenal nodules. Kidneys are normal in size. No hydronephrosis. Left renal calculu s measuring 0.5 cm. Punctate right kidney stone. The previously seen small cyst at the inferior pole left kidney is no longer appreciated. Peritoneum and bowel: Unenhanced bowel loops demonstrate normal wall thickness and caliber. Normal a ppendix. No free fluid or air. Nodes and vessels: No retroperitoneal or mesenteric adenopathy by size criteria. Aorta and inferior vena cava are normal in caliber. Miscellaneous: Fat-containing umbilical hernia. PELVIS: Genitourinary: Bladder is decompressed. No obvious stone. IUD in the uterus appears similar. Miscellaneous: No inguinal hernias or adenopathy. Bones: No suspicious bony lesions. No vertebral body compression fractures. IMPRESSION: 1. No hydronephrosis. 2. Small nonobstructing kidney stones bilaterally. Reviewed by: Juan Jha MD on 08/03/2022 2:49 PM PST Approved by: Juan Jha MD on 08/03/2022 2:49 PM PST Station ID: [id number]
== END 2022-08-03 08:10 | disposition home or self-care (01) ==
LOC: DI 08:09
PROVIDERS: ATTEND Internal Medicine
DX: R82.994 Hypercalciuria (principal); N20.0 Calculus of kidney

== ENCOUNTER 2022-08-30 13:38 | Outpatient (CLI) | payer MEDICARE, OTHER ==
[2022-08-30 18:34] LABS: CREATININE,URINE 286.5 mg/dL; MICROALBUM/CREATININE RATIO,UR 3.5 ug/mg (<30.0)
[2022-08-30 21:59] LABS: ESTIMATED AVERAGE GLUCOSE 166 mg/dL (70-100); HEMOGLOBIN A1c% 7.4 % (4.27-6.07)
[2022-08-31 18:05] LABS: ALBUMIN 3.6 g/dL (3.2-5.5); ALBUMIN/GLOBULIN RATIO 1.1 (1.0-2.2); BILIRUBIN,TOTAL 0.4 mg/dL (0.2-1.0); CALCIUM 9.6 mg/dL (8.5-10.3); CREATININE 0.8 mg/dL (0.4-1.0); POTASSIUM 4.1 mmol/L (3.5-5.0); TOTAL PROTEIN 6.9 g/dL (6.7-8.2)
[2022-09-01 17:08] LABS: THYROGLOBULIN ANTIBODY <1.0 IU/mL (0.0-0.9); THYROGLOBULIN BY IMA <0.1 ng/mL (1.5-38.5)
== END 2022-08-30 13:39 | disposition home or self-care (01) ==
LOC: LAB 13:38
PROVIDERS: ATTEND Internal Medicine
DX: E11.9 Type 2 diabetes mellitus without complications (principal); C73 Malignant neoplasm of thyroid gland; E89.2 Postprocedural hypoparathyroidism
CPT/HCPCS: 36415; 80053; 82043; 82570; 83036; 84443; 86800

== ENCOUNTER 2022-10-11 10:19 | Outpatient (CLI) | payer MEDICARE, OTHER ==
[2022-10-11 10:58] LABS: CHOL/HDL RATIO 2.7 (<4.4); CHOLESTEROL 93 mg/dL; HDL CHOLESTEROL 34 mg/dL; LDL CHOLESTEROL,CALCULATED 41 mg/dL; LDL/HDL RATIO 1.2 (<4.4); TRIGLYCERIDES 92 mg/dL; VLDL CHOLESTEROL 18 mg/dL
[2022-10-11 13:09] LABS: ESTIMATED AVERAGE GLUCOSE 157 mg/dL (70-100); HEMOGLOBIN A1c% 7.1 % (4.27-6.07)
== END 2022-10-11 10:20 | disposition home or self-care (01) ==
LOC: LAB 10:19
PROVIDERS: ATTEND Internal Medicine
DX: E11.69 Type 2 diabetes mellitus with other specified complication (principal); E78.5 Hyperlipidemia, unspecified
CPT/HCPCS: 36415; 80061; 83036; 83721

== ENCOUNTER 2022-10-22 20:50 | Outpatient (CLI) | payer MEDICARE, OTHER ==
--- NOTE | 2022-10-23 04:04 | Ultrasound Report ---
PROCEDURE: Pelvic w/Transvaginal INDICATIONS: IUD SURVEILLANCE TECHNIQUE: Real-time scanning was performed of the pelvic organs, with image documentation. Additional endovagi nal scanning was necessary due to incomplete visualization of the adnexal and endometrial structures by transabdominal scanning. COMPARISON: Ultrasound pelvis 03/01/2022, CT abdomen pelvis 08/03/2022. FINDINGS: Uterus: Uterus is anteverted and measures 10.1 x 4 x 4.3 cm. Endometrium measures up to 0.9 cm. The IUD is not well visualized on the current study secondary to body habitus and bowel gas. There are mu ltiple nabothian cysts noted. Ovaries: The ovaries are not visualized. No definite adnexal masses identified. Other: No pathologic free abdominal or pelvic fluid. IMPRESSION: 1. Suboptimal exam with limited visualization of the IUD. Reviewed by: Per Tejada MD on 10/23/2022 4:03 AM PDT Approved by: Per Tejada MD on 10/23/2022 4:03 AM PDT Station ID: [id number]
== END 2022-10-22 20:51 | disposition home or self-care (01) ==
LOC: DI 20:50
PROVIDERS: ATTEND Obstetrics & Gynecology
DX: Z30.431 Encounter for routine checking of intrauterine contraceptive device (principal)

== ENCOUNTER 2022-10-28 13:50 | Outpatient (CLI) | payer MEDICARE, OTHER ==
--- NOTE | 2022-10-28 14:50 | SLEEP CARE CONSULTATION ---
Information from patient questionnaire entered by Rafaela Perez. I have reviewed and concur with the information entered by Rafaela Perez. This document represents the service I personally performed and the decisions made by me, Luz Martinez ARNP. History of Present Illness Service Date and Time: 10/28/2022 1350 Previous diagnosis: Moderate, Obstructive Sleep Apnea-Hypopnea Syndrome AHI: 20.3 (in 2010) Equipment type: CPAP ([employer]; [place] CARD NEEDED FOR DOWNLOAD AND PRESSURE CHANGE) Equipment obtained from: [facility] (getting supplies as needed) Mask style: Full face Mask brand: Resmed (AirTouch F20) Backup mask available: Yes (old mask) Last cushion change: 2 months Prior sleep studies: Yes Year and Where: 2010 - [facility] [place] in [place]; 2007 - unknown Type of Sleep Study: Polysomnography HPI additional information: ANNA FISCHER was diagnosed to have moderate, AHI 20.3, obstructive sleep apnea- hypopnea syndrome and returned today for CPAP therapy annual follow-up. Sleep Study - Results Type of Sleep Study: Polysomnography Prior sleep studies: Yes Year and Where: 2010 - [facility] [place] in [place]; 2007 - unknown CPAP Compliance Data - Data Reviewed with Patient Average duration of nightly device use: 7 hours 32 minutes Compliance rate %: 98.9 (180/180 days used) Current pressure setting (cmH2O): 10 Average residual AHI: 0.7 Average large leak: 0 Subjective Patient concerns: denies: aerophagia, mask discomfort, air blowing in eyes, mask leak noise, condensation in mask/hose, nasal congestion, dry mouth, nose, throat, epistaxis Observed to snore while using device: No Current pressure setting perceived as: comfortable On therapy, patient: reports: sleeping better, awakening more refreshed, being more awake and alert during the day, more rested overall. denies: drowsiness while driving Initial [place] Sleepiness Scale score: 9 (in 2018) Current [place] Sleepiness Scale score: 3 (10/28/22) Allergies and Home Medications Known drug allergies: Yes (latex) Drug allergies reviewed: Yes Home medication list reviewed: Yes (metformin, rosuvastatin) Allergy and home medication list: Allergies gluten Allergy (Verified 10/27/22 09:56) Cramps latex Allergy (Verified 10/27/22 09:56) Itching Review of Systems Review of systems same as previous: No (diabetes and high cholesterol) Physical Exam Vital signs obtained and entered by: RAFAELA Gray MA Blood Pressure: 122/72 (LEFT) Cuff size: wrist Heart Rate: 79 O2 Saturation: 94 Height: 5 ft 5 in Weight: 368 lb 6.4 oz Body Mass Index: 61.2 BMI Classification: Morbidly Obese Impression and Plan 1. Obstructive Sleep Apnea-Hypopnea Syndrome, moderate, with good treatment compliance and good apnea control. On CPAP therapy, the patient has better sleep quality and is more rested overall. Patient has changed insurance and needs to have a new DME company. I will have my cash management coordinator inform of DME optio ns. A DWO prescription will then be made. Patient advised to contact this office if further supply problems. Patient has a DreamStation that she states she checked about a year ago and thinks they told her that her CPAP was not on the recall. I encouraged her to check again to make sure on their website patient portal. She is not eligible for another machine for at least 2 years. She stated no changes in the machine, including debris, and that she will check on the [employer] website or give them a call. Patient's apnea severity and rationale for treatment to reduce apnea, improve sleep quality and reduce cardiovascular and cerebrovascular events was reviewed. She has diabetes. 2. Obesity, unspecified. Currently patients BMI is 61.2. Obesity increases the risk of apnea, CPAP pressure requirements and overall health risks especially cardiovascular and diabetes. Thus patient is advised to lose weight. * Continue CPAP pressure at 10 cmH2O * Transfer DME * Update supplies * Notify me if snoring with mask or feeling that the pressure is too much or too little * Attempt to lose weight * Call this office if any problems using CPAP * Return for follow up in 1 year, or sooner if concerns arise Counseling Topics: Spare mask, Weight loss health impact Visit Type: In Office Time Spent with Patient (minutes): 21 Provider Statement: I spent 100% of the Face to Face Visit with the patient with greater than 50% spent counseling the patient and coordination of care.
[2022-10-28 15:36] VITALS: BP 122/72
== END 2022-10-28 13:51 | disposition home or self-care (01) ==
LOC: SC 13:50
PROVIDERS: ATTEND Nurse Practitioner Family
DX: G47.33 Obstructive sleep apnea (adult) (pediatric) (principal); E66.01 Morbid (severe) obesity due to excess calories; Z68.44 Body mass index [BMI] 60.0-69.9, adult
CPT/HCPCS: 99213; G0463; 99212

== ENCOUNTER 2022-10-28 15:41 | Outpatient (CLI) | payer MEDICARE, OTHER ==
--- NOTE | 2022-10-29 07:07 | CT Report ---
PROCEDURE: HEAD WO INDICATIONS: HEAD ANOMALY TECHNIQUE: Noncontrast 4.5 mm thick angled axial sections acquired from the foramen magnum to the vertex. For r adiation dose reduction, the following was used: automated exposure control, adjustment of mA and/or kV according to patient size. COMPARISON: None. FINDINGS: Image quality: Motion artifact is noted. There is streak artifact seen through the skull base. CSF spaces: Basal cisterns are patent. No extra-axial fluid collections. Ventricles are normal in size and shape. Brain: No midline shift. No intracranial masses or hemorrhage. Witt-white matter interface is norm al. Skull and face: Calvarium and visualized facial bones are intact, without suspicious lesions. The cr anial sutures are unremarkable. Hyperostosis frontalis is incidentally noted, which is not frankly ab normal for a female patient of this age. Sinuses: Visualized sinuses and mastoids are clear. IMPRESSION: No significant calvarial abnormality can be seen. Hyperostosis frontalis can be seen, which is consid ered normal for a woman of this age. No fractures can be seen. The cranial sutures are within normal limits. No acute intracranial abnormality is seen. Reviewed by: Darrion Pichardo MD on 10/28/2022 3:03 PM JAEL Approved by: Darrion Pichardo MD on 10/28/2022 3:03 PM JAEL Station ID: [id number]
== END 2022-10-28 15:42 | disposition home or self-care (01) ==
LOC: DI 15:41
PROVIDERS: ATTEND Psychiatry & Neurology Neurology
DX: Q75.8 Other specified congenital malformations of skull and face bones (principal)

== ENCOUNTER 2023-03-07 08:19 | Outpatient (CLI) | payer MEDICARE, OTHER ==
[2023-03-07 08:59] LABS: BASOPHILS # (AUTO) 0.1 10^3/uL (0.0-0.1); BASOPHILS % (AUTO) 0.5 %; EOSINOPHILS # (AUTO) 0.2 10^3/uL (0.0-0.7); EOSINOPHILS % (AUTO) 1.6 %; HCT - HEMATOCRIT 37.7 % (37.0-47.0); HGB - HEMOGLOBIN 11.9 g/dL (12.0-16.0); LYMPHOCYTES # (AUTO) 2.3 10^3/uL (1.5-3.5); LYMPHOCYTES % (AUTO) 22.5 %; MEAN CORPUSCULAR HEMOGLOBIN 25.6 pg (27.0-31.0); MEAN CORPUSCULAR HGB CONC 31.6 g/dL (32.0-36.0); MEAN CORPUSCULAR VOLUME 81.1 fL (81.0-99.0); MEAN PLATELET VOLUME 9.6 fL (7.9-10.8); MONOCYTES # (AUTO) 0.5 10^3/uL (0.0-1.0); MONOCYTES % (AUTO) 4.8 %; NEUTROPHILS # (AUTO) 7.3 10^3/uL (1.5-6.6); NEUTROPHILS % (AUTO) 70.3 %; PLT - PLATELET COUNT 321 10^3/uL (130-450); RED BLOOD COUNT 4.65 10^6/uL (4.20-5.40); RED CELL DISTRIBUTION WIDTH 15.5 % (12.0-15.0); WHITE BLOOD COUNT 10.4 x10^3/uL (4.8-10.8)
[2023-03-07 09:14] LABS: ALBUMIN 3.9 g/dL (3.2-5.5); BUN - BLOOD UREA NITROGEN 16 mg/dL (6-20); CALCIUM 9.9 mg/dL (8.5-10.3); CARBON DIOXIDE - CO2 33 mmol/L (21-32); CHLORIDE 101 mmol/L (101-111); CHOL/HDL RATIO 3.2 (<4.4); CHOLESTEROL 101 mg/dL; CREATININE 0.7 mg/dL (0.6-1.3); GFR - MDRD 84 (>89); GLUCOSE 133 mg/dL (74-104); HDL CHOLESTEROL 32 mg/dL; LDL CHOLESTEROL,CALCULATED 45 mg/dL; LDL/HDL RATIO 1.4 (<4.4); PHOSPHORUS 2.5 mg/dL (2.5-5.0); POTASSIUM 3.5 mmol/L (3.5-4.5); SODIUM 139 mmol/L (135-145); TRIGLYCERIDES 121 mg/dL (48-352); VLDL CHOLESTEROL 24 mg/dL
[2023-03-07 09:26] LABS: THYROID STIMULATING HORMONE 0.19 uIU/mL (0.34-5.60)
[2023-03-07 10:52] LABS: ESTIMATED AVERAGE GLUCOSE 140 mg/dL (70-100); HEMOGLOBIN A1c% 6.5 % (4.27-6.07)
[2023-03-08 01:08] LABS: VITAMIN D 25-HYDROXY 66.2 ng/mL (30.0-100.0)
[2023-03-08 14:08] LABS: THYROGLOBULIN ANTIBODY <1.0 IU/mL (0.0-0.9); THYROID PEROXIDASE (TPO) AB <9 IU/mL (0-34)
== END 2023-03-07 08:20 | disposition home or self-care (01) ==
LOC: LAB 08:19
PROVIDERS: ATTEND Internal Medicine
DX: G93.32 Myalgic encephalomyelitis/chronic fatigue syndrome (principal); C73 Malignant neoplasm of thyroid gland; E89.2 Postprocedural hypoparathyroidism; E89.0 Postprocedural hypothyroidism; E11.65 Type 2 diabetes mellitus with hyperglycemia; R82.994 Hypercalciuria; N20.0 Calculus of kidney; E11.69 Type 2 diabetes mellitus with other specified complication; E78.5 Hyperlipidemia, unspecified
CPT/HCPCS: 36415; 80061; 80069; 82306; 83036; 83721; 84443; 85025; 86376; 86800

== ENCOUNTER 2023-04-30 11:02 | Outpatient (CLI) | payer OTHER, MEDICARE ==
[2023-05-04 17:08] LABS: THYROGLOBULIN ANTIBODY <1.0 IU/mL (0.0-0.9); THYROID PEROXIDASE (TPO) AB <9 IU/mL (0-34)
== END 2023-04-30 11:03 | disposition home or self-care (01) ==
LOC: LAB 11:02
PROVIDERS: ATTEND Internal Medicine
DX: C73 Malignant neoplasm of thyroid gland (principal); E89.0 Postprocedural hypothyroidism
CPT/HCPCS: 36415; 84443; 86376; 86800

== ENCOUNTER 2023-07-08 08:25 | Outpatient (CLI) | payer MEDICARE, OTHER ==
--- NOTE | 2023-07-08 14:14 | CT Report ---
PROCEDURE: ABDOMEN/PELVIS WO INDICATIONS: NEPHROLITHIASIS TECHNIQUE: A CT scan of the abdomen and pelvis was performed without the use of intravenous contrast. Images we re recorded and evaluated at appropriate window settings. Reformats: coronal and sagittal. For radiat ion dose reduction, the following was used: automated exposure control, adjustment of mA and/or kV ac cording to patient size. COMPARISON: 08/03/2022. FINDINGS: Image quality: Excellent. Lung bases and heart: Unremarkable. Liver: No solid mass. Gallbladder and biliary tree: No radiopaque stones or wall thickening. No biliary dilation. Spleen: No splenomegaly. Pancreas: No pancreatic ductal dilation. Adrenals: No adrenal nodule. Kidneys and ureters: 7 mm nonobstructing stone is seen in mid to lower pole left kidney. Punctate 1 t o 2 mm nonobstructing stones are also seen scattered in bilateral renal parenchyma. No hydronephrosis . No renal cystic lesion which requires follow up. No solid mass. Bowel and peritoneum: No bowel distension. No pathologic free fluid. No evidence of acute appendiciti s. There is mild sigmoid diverticulosis without sigmoid colon wall thickening or pericolonic fat stra nding. No abscess collection. Lymph nodes: No central or retroperitoneal adenopathy. Vessels: No infrarenal aortic aneurysm. PELVIS Reproductive organs: Intrauterine device is noted in its central endometrial location.. Bladder: No wall thickness, accounting for underdistention. Pelvic lymph nodes: No pelvic adenopathy by size criteria. Bones: No aggressive osseous abnormality. Degenerative disc disease throughout lower thoracic and lum bar spine is seen. Sclerotic focus is seen in left sacrum likely represent benign process such as a b [place]. Other: Small umbilical hernia is seen containing fat only. No inguinal hernia. IMPRESSION: 1. Bilateral nonobstructing renal calculi not significantly changed from previous study. No solid-farrukh earing renal lesion. No obstructing stones or hydronephrosis. 2. No bowel obstruction or abnormal bowel wall thickening. Normal appendix. Colonic diverticulosis wi thout CT evidence of acute diverticulitis. No abscess collection. No free fluid of free air. 3. Degenerative disc disease throughout lower thoracic and lumbar spine. No acute vertebral body comp ression fracture. Reviewed by: Reilly Moffett MD on 07/08/2023 2:13 PM PST Approved by: Reilly Moffett MD on 07/08/2023 2:13 PM PST Station ID: [id number]
== END 2023-07-08 08:26 | disposition home or self-care (01) ==
LOC: DI 08:25
PROVIDERS: ATTEND Urology
DX: N20.0 Calculus of kidney (principal); K57.30 Diverticulosis of large intestine without perforation or abscess without bleeding; M51.36 Other intervertebral disc degeneration, lumbar region; M51.34 Other intervertebral disc degeneration, thoracic region

== ENCOUNTER 2023-07-26 15:16 | Outpatient (CLI) | payer MEDICARE, OTHER | END 2023-07-26 15:17 | disposition home or self-care (01) | LOC: DI 15:16 | PROVIDERS: ATTEND Internal Medicine Cardiovascular Disease | DX: R60.0 Localized edema (principal) | CPT/HCPCS: 93306 ==

== ENCOUNTER 2023-08-17 14:53 | Outpatient (CLI) | payer MEDICARE, OTHER ==
[2023-08-17 21:22] LABS: ESTIMATED AVERAGE GLUCOSE 137 mg/dL (70-100); HEMOGLOBIN A1c% 6.4 % (4.27-6.07)
== END 2023-08-17 14:54 | disposition home or self-care (01) ==
LOC: LAB 14:53
PROVIDERS: ATTEND Internal Medicine
DX: E11.9 Type 2 diabetes mellitus without complications (principal); C73 Malignant neoplasm of thyroid gland; E89.2 Postprocedural hypoparathyroidism; E89.0 Postprocedural hypothyroidism
CPT/HCPCS: 36415; 83036; 84443

== ENCOUNTER 2023-08-23 13:20 | Outpatient (CLI) | payer MEDICARE, OTHER ==
[2023-08-23 14:15] LABS: CREATININE,URINE 58.8 mg/dL
[2023-08-24 16:11] LABS: CALCIUM URINE 26.2 mg/dL (Not Estab.)
== END 2023-08-23 13:21 | disposition home or self-care (01) ==
LOC: LAB.R 13:20
PROVIDERS: ATTEND Internal Medicine
DX: E89.2 Postprocedural hypoparathyroidism (principal)
CPT/HCPCS: 82340; 82570

== ENCOUNTER 2023-10-25 09:59 | Outpatient (CLI) | payer OTHER, MEDICARE ==
[2023-10-25 10:30] LABS: CALCIUM, IONIZED 1.1 mmol/L (1.15-1.33); VBG PH 7.459 (7.31-7.41)
[2023-10-25 10:32] LABS: ESTIMATED AVERAGE GLUCOSE 128 mg/dL (70-100); HEMOGLOBIN A1c% 6.1 % (4.27-6.07)
[2023-10-25 10:43] LABS: ALBUMIN 3.9 g/dL (3.2-5.5); CALCIUM 10.3 mg/dL (8.5-10.3); CREATININE 0.9 mg/dL (0.6-1.3); PHOSPHORUS 3.9 mg/dL (2.5-5.0); POTASSIUM 3.6 mmol/L (3.5-4.5)
[2023-10-25 10:55] LABS: THYROID STIMULATING HORMONE 0.18 uIU/mL (0.34-5.60)
[2023-10-26 09:10] LABS: VITAMIN D 25-HYDROXY 65.2 ng/mL (30.0-100.0)
[2023-10-26 21:08] LABS: THYROGLOBULIN ANTIBODY <1.0 IU/mL (0.0-0.9); THYROID PEROXIDASE (TPO) AB <9 IU/mL (0-34)
== END 2023-10-25 10:00 | disposition home or self-care (01) ==
LOC: LAB 09:59
PROVIDERS: ATTEND Student in an Organized Health Care Education/Training Program
DX: E20.9 Hypoparathyroidism, unspecified (principal); M81.0 Age-related osteoporosis without current pathological fracture; E11.69 Type 2 diabetes mellitus with other specified complication
CPT/HCPCS: 36415; 80069; 82043; 82306; 82330; 82570; 83036; 83970; 84439; 84443; 86376; 86800

== ENCOUNTER 2023-11-04 13:02 | Outpatient (CLI) | payer OTHER | END 2023-11-04 13:03 | disposition home or self-care (01) | LOC: LAB.R 13:02 | PROVIDERS: ATTEND Student in an Organized Health Care Education/Training Program | DX: E20.9 Hypoparathyroidism, unspecified (principal) | CPT/HCPCS: 81599 ==

== ENCOUNTER 2024-01-09 13:09 | Outpatient (CLI) | payer MEDICARE, OTHER | END 2024-01-09 13:10 | disposition home or self-care (01) | LOC: LAB.R 13:09 | PROVIDERS: ATTEND Student in an Organized Health Care Education/Training Program | DX: E20.9 Hypoparathyroidism, unspecified (principal) | CPT/HCPCS: 81599 ==

== ENCOUNTER 2024-02-15 14:54 | Outpatient (CLI) | payer MEDICARE, OTHER ==
--- NOTE | 2024-02-15 15:37 | Sleep Patient Instructions ---
Sleep Center Visit Summary - Patient Visit Information Reason for Visit: Annual follow-up - Patient Instructions Additional Instructions: You will continue with CPAP therapy with pressure set at 10 cmH2O. A supply prescription will be updated with your DME. We encourage you to continue to try to lose weight. Please follow up with the sleep care office in 1 year. - Clinic Information Contact: [facility] [address] [place] [address] [email or web address] T: [phone]
--- NOTE | 2024-02-15 15:41 | SLEEP CARE CONSULTATION ---
Information from patient questionnaire entered by Meche Perez. I have reviewed and concur with the information entered by Meche Perez. This document represents the service I personally performed and the decisions made by me, Luz Martinez ARNP. History of Present Illness Service Date and Time: 02/15/2024 1454 Previous diagnosis: Moderate, Obstructive Sleep Apnea-Hypopnea Syndrome AHI: 20.3 (in 2010) Reason for follow up: annual (LAST SEEN 10/2022) Accompanied by: Spouse (Martha) Equipment type: CPAP (Resmed Airsense 10, s/u 10/2022; [place] CARD NEEDED FOR DOWNLOAD AND PRESSURE CHANGE) Equipment obtained from: Other ([facility]; getting supplies as needed) Mask style: Full face Mask brand: Resmed (AirTouch F20) Backup mask available: Yes Last cushion change: 2 weeks Prior sleep studies: Yes Year and Where: 2010 - [facility] [place] in [place]; 2007 - unknown Type of Sleep Study: Polysomnography HPI additional information: ANNA FISCHER was diagnosed to have moderate, AHI 20.3, obstructive sleep apnea- hypopnea syndrome and returned today for CPAP therapy annual follow-up. Sleep Study - Results Type of Sleep Study: Polysomnography Prior sleep studies: Yes Year and Where: 2010 - [facility] [place] in [place]; 2007 - unknown CPAP Compliance Data - Data Reviewed with Patient Average duration of nightly device use: 7 HRS 44 MINS Compliance rate %: 100 (02/15/23-02/14/24) Current pressure setting (cmH2O): 10 Average residual AHI: 1.0 Central apnea: 0 Obstructive apnea: 0.7 Hypopnea: 0.3 Average large leak: 0.3 L/min Subjective Patient concerns: reports: air blowing in eyes, dry mouth, nose, throat. denies: aerophagia, mask discomfort, mask leak noise, condensation in mask/hose, nasal congestion, epistaxis Observed to snore while using device: No Current pressure setting perceived as: comfortable On therapy, patient: reports: sleeping better, awakening more refreshed, being more awake and alert during the day, more rested overall. denies: drowsiness while driving Initial [place] Sleepiness Scale score: 9 (in 2018) Current [place] Sleepiness Scale score: 8 (02/15/24) Allergies and Home Medications Known drug allergies: No (as listed) Drug allergies reviewed: Yes Home medication list reviewed: Yes (no changes) Allergy and home medication list: Allergies gluten Allergy (Verified 02/13/24 11:05) Cramps latex Allergy (Verified 02/13/24 11:05) Itching Review of Systems Review of systems same as previous: Yes (no changes) Physical Exam Vital signs obtained and entered by: MECHE Gray MA Blood Pressure: 157/75 (LEFT ) Cuff size: wrist Heart Rate: 95 O2 Saturation: 95 Height: 5 ft 5 in Weight: 328 lb 9.6 oz Weight change since last visit: 40 Body Mass Index: 54.6 BMI Classification: Morbidly Obese Impression and Plan 1. Obstructive Sleep Apnea-Hypopnea Syndrome, moderate, with good treatment compliance and good apnea control. On CPAP therapy, the patient has better sleep quality and is more rested overall. She has significant improvement of her sleep apnea and is satisfied with current CPAP therapy. She does get a little bit of a dent on her forehead from her mask riding up. She gets a little bit of air blowing into her eyes too. She does like the memory foam on her current F20 mask. She will work with the headgear and if she decides to try a different mask, she will let us know. Patient's apnea severity and rationale for treatment to reduce apnea, improve sleep quality and reduce cardiovascular and cerebrovascular events was reviewed. I also reviewed the benefit of consistent device use of CPAP for diabetes. 2. Obesity, unspecified. Currently patients BMI is 54.6. Obesity increases the risk of apnea, CPAP pressure requirements and overall health risks especially cardiovascular and diabetes. Thus patient is advised to lose weight. * Continue CPAP pressure at 10 cmH2O * Update supply prescription * Notify me if snoring with mask or feeling that the pressure is too much or too little * Attempt to lose weight * Call this office if any problems using CPAP * Return for follow up in 12 months, or sooner if concerns arise Counseling Topics: Spare mask, Weight loss health impact Prescriptions: Device supplies Follow up with Sleep Care in: 1 year Visit Type: In Office Time Spent with Patient (minutes): 21 Provider Statement: I spent 100% of the Face to Face Visit with the patient with greater than 50% spent counseling the patient and coordination of care.
[2024-02-15 15:46] VITALS: BP 157/75; O2SAT 95
== END 2024-02-15 14:55 | disposition home or self-care (01) ==
LOC: SC 14:54
PROVIDERS: ATTEND Nurse Practitioner Family
DX: G47.33 Obstructive sleep apnea (adult) (pediatric) (principal); E66.01 Morbid (severe) obesity due to excess calories; Z68.43 Body mass index [BMI] 50.0-59.9, adult
CPT/HCPCS: 99213; G0463; 99212

== ENCOUNTER 2024-02-22 15:45 | Outpatient (CLI) | payer MEDICARE, OTHER | END 2024-02-22 15:46 | disposition home or self-care (01) | LOC: LAB.R 15:45 | PROVIDERS: ATTEND Student in an Organized Health Care Education/Training Program | DX: E83.52 Hypercalcemia (principal) | CPT/HCPCS: 81599 ==

== ENCOUNTER 2024-03-15 09:54 | Outpatient (CLI) | payer MEDICARE, OTHER ==
[2024-03-15 11:13] LABS: ALBUMIN 3.8 g/dL (3.2-5.5); CALCIUM 9.1 mg/dL (8.5-10.3); CREATININE 0.8 mg/dL (0.6-1.3); PHOSPHORUS 3.9 mg/dL (2.5-5.0); POTASSIUM 3.7 mmol/L (3.5-4.5)
== END 2024-03-15 09:55 | disposition home or self-care (01) ==
LOC: LAB 09:54
PROVIDERS: ATTEND Student in an Organized Health Care Education/Training Program
DX: E20.9 Hypoparathyroidism, unspecified (principal)
CPT/HCPCS: 36415; 80069; 82306; 83970

== ENCOUNTER 2024-03-28 12:04 | Emergency (ER) | payer OTHER, MEDICARE ==
[2024-03-28 12:27] VITALS: O2SAT 96
[2024-03-28 12:40] LABS: BILIRUBIN,URINE NEGATIVE (NEGATIVE); CLARITY,URINE CLEAR (CLEAR); GLUCOSE, URINE (UA) NEGATIVE (NEGATIVE); KETONES,URINE (UA) NEGATIVE (NEGATIVE); LEUKOCYTE ESTERASE, URINE TRACE (NEGATIVE); NITRITE,URINE NEGATIVE (NEGATIVE); OCCULT BLOOD,URINE NEGATIVE (NEGATIVE); PH,URINE 7.5 PH (5.0-7.5); PROTEIN,URINE NEGATIVE (NEGATIVE); UROBILINOGEN,URINE 0.2 (NORMAL) E.U./dL (NORMAL)
[2024-03-28 12:42] LABS: BASOPHILS # (AUTO) 0.1 10^3/uL (0.0-0.1); BASOPHILS % (AUTO) 0.5 %; EOSINOPHILS # (AUTO) 0.2 10^3/uL (0.0-0.7); EOSINOPHILS % (AUTO) 1.4 %; HCT - HEMATOCRIT 38.3 % (37.0-47.0); LYMPHOCYTES # (AUTO) 3.2 10^3/uL (1.5-3.5); MEAN CORPUSCULAR HEMOGLOBIN 26.3 pg (27.0-31.0); MEAN CORPUSCULAR HGB CONC 31.3 g/dL (32.0-36.0); MEAN CORPUSCULAR VOLUME 83.8 fL (81.0-99.0); MONOCYTES # (AUTO) 0.6 10^3/uL (0.0-1.0); MONOCYTES % (AUTO) 5.4 %; NEUTROPHILS # (AUTO) 7.7 10^3/uL (1.5-6.6); NEUTROPHILS % (AUTO) 65.3 %; PLT - PLATELET COUNT 351 10^3/uL (130-450); RED BLOOD COUNT 4.57 10^6/uL (4.20-5.40); RED CELL DISTRIBUTION WIDTH 14.8 % (12.0-15.0); WHITE BLOOD COUNT 11.8 x10^3/uL (4.8-10.8)
[2024-03-28 12:47] LABS: BACTERIA,URINE Rare /HPF (None Seen); RBC,URINE None Seen /HPF (0-5); SQUAMOUS EPITHELIAL CELL,UR MOD Squamous (<= Few)
[2024-03-28 13:08] LABS: ALBUMIN 3.9 g/dL (3.2-5.5); ALBUMIN/GLOBULIN RATIO 1.4 (1.0-2.2); BILIRUBIN,TOTAL 0.3 mg/dL (0.2-1.0); CALCIUM 9.8 mg/dL (8.5-10.3); CREATININE 0.9 mg/dL (0.6-1.3); POTASSIUM 3.9 mmol/L (3.5-4.5); TOTAL PROTEIN 6.7 g/dL (6.4-8.9)
--- NOTE | 2024-03-28 14:15 | ED Physician Documentation ---
History of Present Illness - Stated complaint Stated Complaint: NAUSEA,BACK PX, - Chief complaint Chief Complaint: Back Pain - Additonal information Additional information: 68-year-old female with history of asthma, hypothyroidism, hypoparathyroidism, renal calculi, depression presents emergency department for right flank pain. Patient says that it has been going on now for about 10 days been on Tuesday it really increased in severity. She has had some mild nausea no vomiting she is unsure if her send any fevers she constantly has chills that is not new for her. No urinary frequency or urgency. Her main concern is that she might need to have a lithotripsy because she has required this in the past and she just wants to make sure that she does not have an obstructive kidney stone. 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, Endometrial ablation, Dilation and currettage - Present Medications Home Medications: Ambulatory Orders Medication Instructions Recorded Confirmed Calcium Carbonate [Calcium] 600 mg PO DAILY 08/15/17 02/15/24 Escitalopram Oxalate [Lexapro] 20 mg PO DAILY 08/15/17 02/15/24 Levothyroxine Sodium [Synthroid] 175 mcg PO DAILY 08/15/17 02/15/24 Levothyroxine Sodium [Synthroid] 200 mcg PO DAILY 08/15/17 02/15/24 Loratadine [Allergy Relief] 10 mg PO DAILY 08/15/17 02/15/24 Omeprazole [PriLOSEC] 20 mg PO DAILY 08/15/17 02/15/24 Parathyroid Hormone [Natpara] 75 mcg SQ DAILY 08/15/17 02/15/24 Zolpidem Tartrate [Ambien] 10 mg PO QPM 08/15/17 02/15/24 Cholecalciferol (Vitamin D3) See Rx Instructions .ROUTE .COMPLEX 04/25/18 02/15/24 [Vitamin D3] Rosuvastatin Calcium [Crestor] See Rx Instructions .ROUTE .COMPLEX 10/28/22 02/15/24 metFORMIN [Glucophage] See Rx Instructions .ROUTE .COMPLEX 10/28/22 02/15/24 - Allergies Allergies/Adverse Reactions: Allergies Allergy/AdvReac Type Severity Reaction Status Date / Time gluten Allergy Cramps Verified 03/28/24 12:25 latex Allergy Itching Verified 03/28/24 12:25 - Social History Does the pt smoke?: No Smoking Status: Never smoker Does the pt drink ETOH?: Yes Does the pt have substance abuse?: No - Immunizations Immunizations are current?: Yes - POLST Patient has POLST: No PD ED PE NORMAL - Vitals Vital signs reviewed: Yes - General General: Alert and oriented X 3, No acute distress, Well developed/nourished (obese) - HEENT HEENT: Atraumatic, PERRL - Cardiac Cardiac: RRR - Respiratory Respiratory: No respiratory distress, Clear bilaterally - Abdomen Abdomen: Normal bowel sounds, Soft, Non tender, No organomegaly - Back Back: Other (right CVA mild tenderness) - Derm Derm: Normal color, Warm and dry, No rash Results - Vitals Vitals: Vital Signs - 24 hr 03/28/24 03/28/24 03/28/24 12:15 13:52 15:06 Temperature 36.6 C 36.6 C Heart Rate 70 70 67 Respiratory 17 20 18 Rate Blood Pressure 134/52 H 135/44 H 139/59 H O2 Saturation 96 96 96 03/28/24 16:05 Temperature 36.7 C Heart Rate 67 Respiratory 17 Rate Blood Pressure 137/59 H O2 Saturation 96 Oxygen O2 Source Room air - Labs Labs: Laboratory Tests 03/28/24 03/28/24 03/28/24 12:20 12:37 12:37 WBC 11.8 H RBC 4.57 Hgb 12.0 Hct 38.3 MCV 83.8 MCH 26.3 L MCHC 31.3 L RDW 14.8 Plt Count 351 MPV 10.0 Neut # (Auto) 7.7 H Lymph # (Auto) 3.2 Falls # (Auto) 0.6 Eos # (Auto) 0.2 Baso # (Auto) 0.1 Absolute Nucleated RBC 0.00 Nucleated RBC % 0.0 Sodium 139 Potassium 3.9 Chloride 100 L Carbon Dioxide 31 Anion Gap 8.0 BUN 19 Creatinine 0.9 Estimated GFR (MDRD) 63 L Glucose 116 H Calcium 9.8 Total Bilirubin 0.3 AST 12 ALT 9 L Alkaline Phosphatase 63 Total Protein 6.7 Albumin 3.9 Globulin 2.8 Albumin/Globulin Ratio 1.4 Lipase 23 Urine Color YELLOW Urine Clarity CLEAR Urine pH 7.5 Ur Specific New Site 1.010 Urine Protein NEGATIVE Urine Glucose (UA) NEGATIVE Urine Ketones NEGATIVE Urine Occult Blood NEGATIVE Urine Nitrite NEGATIVE Urine Bilirubin NEGATIVE Urine Urobilinogen 0.2 (NORMAL) Ur Leukocyte Esterase TRACE H Urine RBC None Seen Urine WBC 4-5 Ur Squamous Epith Cells MOD Squamous H Urine Bacteria Rare Ur Microscopic Review INDICATED Urine Culture Comments NOT INDICATED - Rads (name of study) CT KUB Relevant Findings:: Final report received, EMP independent interpretation of test, Other (No hydronephrosis, no obstructing renal stone. 7mm non obstructing left sided nephrolithias. calcification along the anterior margin of the urinary bladder, possiobly within a urachal remnant, possible early signs of malignancy ) PD Medical Decision Making - ED course ED course: 68-year-old female presents emergency department for Right-sided flank pain. She is offered pain medication when she first arrives but does declined and says that her main concern is that she just wants a CT to make sure that she does not have an obstructing kidney stone. A CT KUB was complete for further evaluation as she did have some right CVA tenderness ironically patient was found to have a left-sided nephrolithiasis that was nonobstructing without hydronephrosis measuring about 7 mm. She also was found to have IUD present within the uterus with oblique orientation suggesting possible malplacement but patient and her report that she is already had this worked up outpatient and her IUD is in the appropriate position and she keeps the IUD in place for vaginal bleeding. CT also showed some calcifications along the anterior margins of the urinary bladder possibly with a urethral remnant indicating possible early malignancy. Patient and her were also notified of these findings and they have a urologist with [facility] that they were informed to follow-up with. She was given a CD as well as the radiology read of today's findings. She had trace leukocytes in her urinalysis although she had moderate squamous cells with it making me less concerned or suspicious for possible UTI. Patient says that she has had multiple UTIs and she feels quite confident this is not a urinary tract infection so holding off on prescribing any antibiotics at this point in time. Labs are also complete for further evaluation she has very mild leukocytosis 11.8 and normal electrolytes normal kidney function. Patient is safe for discharge at this point in time she has a multitude of specialist that she is already established with that she feels confident she will be able to arrange outpatient appointments with about today's ER visit. Return precautions given. Departure - Departure Disposition: 01 Home, Self Care Clinical Impression: Renal calculi Instructions: Kidney Stones Comments: Thank you for trusting us with your care. We have completed a CT KUB and below you will find the results. They are recommending a urology outpatient referral as there may be early signs of possible cancer of your bladder. This is not completely positive but again it is recommended that you follow-up with urology for further evaluation of this. You had a very small amount of leukocytes in your urine but you said that you have absolutely no signs or symptoms of a urinary infection. If in a couple days you do start to develop signs and symptoms of a UTI I would have your urine reevaluated. Please come back to the ER if you are having any worsening symptoms such as worsening kidney pain, fevers chills, or any other concerning emergent symptoms. Wishing you the best. EXAM: [id number] CT/KUB ([id number]) PROCEDURE: KUB INDICATIONS: right flank pain, hx renal calculi TECHNIQUE: A CT scan of the abdomen and pelvis was performed without the use of intravenous contrast. Images were recorded and evaluated at appropriate window settings. Reformats: coronal and sagittal. For radiation dose reduction, the following was used: automated exposure control, adjustment of mA and/or kV according to patient size. COMPARISON: 08/03/2022 FINDINGS: Image quality: Diagnostic. Lower chest: Unremarkable. Liver: No contour-deforming mass. Gallbladder: No radiopaque stones or wall thickening. Biliary tree: No intrahepatic or extrahepatic dilation, accounting for age. Spleen: No splenomegaly. Pancreas: No pancreatic ductal dilation. Adrenals: No adrenal nodule. Kidneys and ureters: No hydronephrosis. No contour-deforming mass. Nonobstructing 7 mm stone in the superior calyx of the left kidney. Stomach, bowel and peritoneum: No gastric or small bowel dilation. No abnormal wall thickening. No pathologic free fluid. Normal appendix. Lymph nodes: No central or retroperitoneal adenopathy. Vessels: No infrarenal aortic aneurysm. Reproductive organs: IUD present within the uterus, with an oblique orientation. Bladder: Bladder wall thickness is normal, accounting for underdistention. Calcification along the anterior margin of the urinary bladder. Pelvic lymph nodes: No adenopathy by size criteria. Bones: No aggressive osseous abnormality. Other: No significant ventral or inguinal hernia. IMPRESSION: No hydronephrosis or obstructing renal stone. 7 mm nonobstructing left-sided nephrolithiasis. Normal appendix. Normal gallbladder. IUD present within the uterus, with an oblique orientation. Findings suggest malplacement. Consider correlation with pelvic ultrasound. Calcification along the anterior margin of the urinary bladder, possibly within a urachal remnant. Recommend urology referral as findings may indicate early malignancy. Reviewed by: Dre Enciso MD on 03/28/2024 3:29 PM PDT Approved by: Dre Enciso MD on 03/28/2024 3:29 PM PDT Station ID: [id number] Discharge Date/Time: 03/28/24 16:05
--- NOTE | 2024-03-28 15:31 | CT Report ---
PROCEDURE: KUB INDICATIONS: right flank pain, hx renal calculi TECHNIQUE: A CT scan of the abdomen and pelvis was performed without the use of intravenous contrast. Images we re recorded and evaluated at appropriate window settings. Reformats: coronal and sagittal. For radiat ion dose reduction, the following was used: automated exposure control, adjustment of mA and/or kV ac cording to patient size. COMPARISON: 08/03/2022 FINDINGS: Image quality: Diagnostic. Lower chest: Unremarkable. Liver: No contour-deforming mass. Gallbladder: No radiopaque stones or wall thickening. Biliary tree: No intrahepatic or extrahepatic dilation, accounting for age. Spleen: No splenomegaly. Pancreas: No pancreatic ductal dilation. Adrenals: No adrenal nodule. Kidneys and ureters: No hydronephrosis. No contour-deforming mass. Nonobstructing 7 mm stone in the s uperior calyx of the left kidney. Stomach, bowel and peritoneum: No gastric or small bowel dilation. No abnormal wall thickening. No pa thologic free fluid. Normal appendix. Lymph nodes: No central or retroperitoneal adenopathy. Vessels: No infrarenal aortic aneurysm. Reproductive organs: IUD present within the uterus, with an oblique orientation. Bladder: Bladder wall thickness is normal, accounting for underdistention. Calcification along the an terior margin of the urinary bladder. Pelvic lymph nodes: No adenopathy by size criteria. Bones: No aggressive osseous abnormality. Other: No significant ventral or inguinal hernia. IMPRESSION: No hydronephrosis or obstructing renal stone. 7 mm nonobstructing left-sided nephrolithiasis. Normal appendix. Normal gallbladder. IUD present within the uterus, with an oblique orientation. Findings suggest malplacement. Consider c orrelation with pelvic ultrasound. Calcification along the anterior margin of the urinary bladder, possibly within a urachal remnant. Re commend urology referral as findings may indicate early malignancy. Reviewed by: Dre Enciso MD on 03/28/2024 3:29 PM PDT Approved by: Dre Enciso MD on 03/28/2024 3:29 PM PDT Station ID: [id number]
[2024-03-28 16:17] VITALS: BP 137/59
== END 2024-03-28 16:05 | disposition home or self-care (01) ==
LOC: ED 12:04
DX: N20.0 Calculus of kidney (principal); J45.909 Unspecified asthma, uncomplicated; E03.9 Hypothyroidism, unspecified; F32.A Depression, unspecified
CPT/HCPCS: 36415; 80053; 81001; 81003; 83690; 85025; 87086; 99284

== ENCOUNTER 2024-04-12 11:18 | Outpatient (CLI) | payer OTHER, MEDICARE ==
[2024-04-12 12:11] LABS: ALBUMIN 4.1 g/dL (3.2-5.5); BUN - BLOOD UREA NITROGEN 17 mg/dL (6-20); CALCIUM 9.6 mg/dL (8.5-10.3); CARBON DIOXIDE - CO2 33 mmol/L (21-32); CHLORIDE 100 mmol/L (101-111); CHOL/HDL RATIO 3.1 (<4.4); CHOLESTEROL 114 mg/dL; CREATININE 0.8 mg/dL (0.6-1.3); GFR - MDRD 72 (>89); GLUCOSE 123 mg/dL (74-104); HDL CHOLESTEROL 37 mg/dL; LDL CHOLESTEROL,CALCULATED 55 mg/dL; LDL/HDL RATIO 1.5 (<4.4); PHOSPHORUS 3.9 mg/dL (2.5-5.0); POTASSIUM 3.7 mmol/L (3.5-4.5); SODIUM 139 mmol/L (135-145); TRIGLYCERIDES 112 mg/dL; VLDL CHOLESTEROL 22 mg/dL
[2024-04-12 12:27] LABS: THYROID STIMULATING HORMONE 0.07 uIU/mL (0.34-5.60)
[2024-04-12 12:32] LABS: CREATININE,URINE 87.2 mg/dL
[2024-04-12 12:37] LABS: MICROALBUMIN,URINE < 0.7 mg/dL
== END 2024-04-12 11:19 | disposition home or self-care (01) ==
LOC: LAB 11:18
PROVIDERS: ATTEND Student in an Organized Health Care Education/Training Program
DX: N20.0 Calculus of kidney (principal); E20.9 Hypoparathyroidism, unspecified
CPT/HCPCS: 36415; 80061; 80069; 81599; 82043; 82306; 82570; 82652; 83721; 84439; 84443; 86376; 86800

== ENCOUNTER 2024-04-18 14:07 | Outpatient (CLI) | payer MEDICARE, OTHER | END 2024-04-18 14:08 | disposition home or self-care (01) | LOC: LAB.R 14:07 | PROVIDERS: ATTEND Student in an Organized Health Care Education/Training Program | DX: N20.0 Calculus of kidney (principal); E20.9 Hypoparathyroidism, unspecified | CPT/HCPCS: 81599 ==